=== PATIENT | female | born 1985 | race Caucasian/White ===

== ENCOUNTER 2024-12-21 20:10 | Emergency (ER) | payer OTHER, SELFPAY ==
--- NOTE | ~2024-12-21 | XR_ITS ---
XR chest 2V Ordering provider: Benny Lazcano MD History: 39 years Female with . chest pain . Comparison: None. FINDINGS: MEDIASTINUM: The cardiac silhouette is not enlarged. LUNGS: No infiltrates, effusions or pneumothorax. OTHER: No free air under the diaphragm. Degenerative changes of the spine. IMPRESSION: No acute cardiopulmonary pathology. Reviewed, dictated and finalized at location A.
[2024-12-21 20:12] VITALS: BP 141/87; PULSE 90; RESP 18; TEMP 36.7; O2SAT 100
--- NOTE | 2024-12-21 20:12 | ECG_ITS ---
Test Date: 2024-12-21 20:17:53 Measurements Intervals [place] Rate: 78 P: 87 VA: 142 QRS: 46 QRSD: 95 T: 38 QT: 350 QTc: 400 Interpretive Statements SINUS RHYTHM RSR' IN V1 OR V2, PROBABLY NORMAL VARIANT No previous ECG available for comparison Electronically Signed On 12-22-2024 15:19:17 CDT by Jah Farrar M.D.
--- OUTSIDE RECORDS SUMMARY | 2024-12-21 20:12 | XMS_ITS | Data Portability ---
Author Organization [facility], [facility] Address [address] [facility] [address] [place] [address] Assessment No assessment recorded. Plan of Treatment Reminders Order Date Submit Date Provider Last Modified By Organization Details Last Modified Time Details Appointments None recorded. Lab None recorded. Referral None recorded. Procedures None recorded. Surgeries None recorded. Imaging None recorded. Medication Orders Augmentin 875 mg-125 mg tablet 2018 019 INTERFACE [id number], [address] [place] [address], [id number], 9 10:30:16 Patient TargetsNo targets recorded. Patient Instructions Encounter Date Encounter Id Patient Instructions Last Modified By Organization Details Last Modified Time 11/08/2018 [id number] Discharge Instructions [email or web address] Not available 11/08/2018 10:30:08 Acute Sinusitis: Care Instructions [email or web address] Not available 11/08/2018 10:30:08 Reason for Referral None Reported. Problems Name Problem SNOMED Code Status Onset Date Resolution Date Notes Provider Name and Address Organization Details Recorded Time Sneezing 01275534 Active 019 MARIA FERNANDA REEVES null, [facility] 9 10:25:49 Headache 60797628 Active 019 MARIA FERNANDA REEVES null, [facility] 9 10:25:56 Bilateral earache 460045316 Active 019 MARIA FERNANDA REEVES null, [facility] 9 10:26:04 Pain in throat 404748494 Active 019 MARIA FERNANDA REEVES [facility] 9 10:26:11 Problem Notes None recorded. Medical Equipment None Reported. Allergies No known drug allergies Medications Name Sig Start Date Stop Date Status Note LastModified by Organization Details LastModified Time Augmentin 875 mg-125 mg tablet Take 1 tablet every 12 hours by oral route for 10 days. 2018 active Not Available Not Available Not Avai lable amoxicillin 875 mg tablet 11/08 completed Not Available Not Available Not Available imiquimod 5 % topical cream packet 11/08 completed Not Available Not Available Not Available neomycin-poly myxin-dexamet h 3.5 mg/mL-10,000 unit/mL-0.1% eye drops 11/08 completed Not Available Not Available Not Available Vitals Date Recorded Heart rate Respiratory rate Oxygen saturation Oxygen saturation in Arterial blood by Pulse oximetry Body temperature Body height Body weight Systolic blood pressure Diastolic blood pressure Provider Name and Address Organization Details Last Updated DateTime 9 93 /min 18 /min 97 % 97 % 98.9 [degF] 165.1 cm 53770.9 7 g 112 mm[Hg] 70 mm[Hg] MARIA FERNANDA REEVES [facility] 9 10:25:10 Social History Question Answer Notes LastModified by Organizat ion Details LastModified Time Tobacco Smoking Status Never Smoker MARIA FERNANDA REEVES [facility] 11/08/2018 10:26:15 Alcohol Use None [email or web address] Information n ot available 11/08/2018 What Was The Date Of Your Most Recent Tobacco Screening? 11/08/2018 Information n ot available 02/18/2019 Are You Passively Exposed To Smoke? No [email or web address] Information not available 11/08/2018 How Much Tobacco Do You Smoke? No Information not available 11/08/2018 How Many Years Have You Smoked Tobacco? 0 [email or web address] Information not available 11/08/2018 Sex: Unknown Functional Status None recorded. Mental Status None recorded. Family History Nothing Reported. Medical History Condition Response Discussed with patient No Past Medical H x Y Gynecological History Statement/Question Response Current Control Method None Date of LMP 10/30/2018 LMP Approximate Obstetrics History GPAL:G 0 P 0 0 0 0 Past Encounters Encounter ID Performer Location Encounter Start Date Encounter Closed Date Diagnosis/Indication Diagnosis SNOMED-CT Code Diagnosis ICD10 Code Diagnosis Note [id number] NED Ly [facility] [id number] [facility] [address] [place] [address] 11/08/2018 10:19:36 11/08/2018 10:32:51 Acute sinusitis 00269343 J01.90 Acute pharyngitis 832492 003 J02.9 Health Concerns Section Related Observation LastModified by Organization Detai ls LastModified Time None Recorded Concern Status LastModified by Organization Details LastModified Time None Recorded Advance Directives Directive None Recorded Payers Insurance Date Sequence Insurance Name Policy Number Policy Wu Covered Member ID Wu Member ID Guarantor Name 11/08/2018 1 [facility] [id number] Jimmy Joe [id number] Qutea Joe Notes Date Note Type Note Provider Name and Address Organization Details Recorded Time 11/08/2018 text/html Sinusitis UCReported bypatient.Locatio n:maxillary; frontal Quality:minimal discomfort Onset/ Duration:12 ago Timing:wax/wane; worse in the morning Severity:moderate Associated Symptoms:no difficulty breathing; no headache; no facial pain; no sinus pain;nasal discharge from both nostrils;fever/ch ills;sore throat;thick phlegm in throat;constantly clearing the throat;ear [place]ness[place] [id number] [facility] [address],[facility] [address], [place], [address], [facility], [facility] 11/08/2018 10:31:02 OBGyn Episode No OBEpisode recorded.
--- OUTSIDE RECORDS SUMMARY | 2024-12-21 20:12 | XMS_ITS | Encounter Summary ---
Author Organization [facility] Address [address] [place] [address] Care Team Providers Care Production Associate Name Role Phone Mika Dacosta MD Primary Care Provider [phone] Encounter Details Date Type Department Care Team (Late st Contact Info) Description 04/14/2005 Outpatient Historical [facility] Internal Medicine [address] [address] Mika Dacosta MD [address] [place] [address] [address] [place] [address] Social History Tobacco Use Types Packs/Day Years Used Date Smoking Tobacco: Never Assessed Comments Unknown Sex and Gender Information Value Date Recorded Sex Assigned at Not on file Legal Sex Female 2:56 AM FLATCAR WHACKER Gender Identity Not on file Sexual Orientation Not on file documented as of this encounter Plan of Treatment Upcoming Encounters Date Type Department Care Team (Late st Contact Info) Description 12/28/2024 10:20 AM CDT Office Visit [facility] Primary Care [address] [place] [address] Mika Dacosta MD [address] [place] [address] [address] [place] [address] 01/26/2025 10:50 AM CDT Office Visit [facility] WELL DRILLER Medical [place] [address] [facility] [address] [place] [address] Seema Dyson, [address] [facility] [address] [place] [address] documented as of this encounter Visit Diagnoses Not on filedocumented in this encounter Care Teams Production Associate Relationship Specialty Start Date End Date Mika Dacosta MD PCP - General 05/18/08 03/19/20 documented as of this encounter
--- OUTSIDE RECORDS SUMMARY | 2024-12-21 20:12 | XMS_ITS | Encounter Summary ---
Author Organization [facility] Address 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 headaches, have gotten worse over the last year HISTORY: headaches worse x months, legs still bother her, no inc stress, engaged PHYSICAL EXAMINATION: CONSTITUTIONAL: GENERAL APPEARANCE: Healthy appearing patient in no distress. EYES: PUPILS: Pupils equal and normally reactive to light and accommodation. FUNDUSCOPIC EXAM: Ophthalmoscopic examination shows the fundi to be normal. The optic disc are flatand of normal size. There are no hemorrhages or exudates. EARS, NOSE, MOUTH AND THROAT: EARS: Tympanic membranes shiny without retraction. Canals unremarkable. Hearing grossly normal. ORAL: Inspection of gums, lips, palate, and teeth normal. No scars, lesions, or masses. Oral mucosaunremarkable with non-inflamed posterior pharynx. NECK/THYROID: Trachea midline. No thyroid enlargement, tenderness, or mass. No supraclavicular or cervical adenopathy. RESPIRATORY: Clear to auscultation and percussion. Normal respiratory effort. CARDIOVASCULAR: CARDIAC: Regular rhythm. No murmurs, rubs, or gallops. ARTERIAL: No aortic bruits. EDEMA/VARICOSITIES OF EXTREMITIES: No edema or varicosities. GASTROINTESTINAL: ABDOMEN: Soft, non-tender, without masses. Bowel sounds active. LIVER/SPLEEN/KIDNEY: No hepatosplenomegaly, tenderness or nodularity. Kidneys not palpable. MUSCULOSKELETAL EXAM: EXTREMITIES: BILATERAL LOWER EXTREMITIES: No misalignment or tenderness. Full range of motion. Normal stability,strength and tone. 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 MIDRIN ORAL CAPSULE CONVENTIONAL 325-65-100 MG, 1 Every Six Hours, As Needed, 50 Dispensed, 3 Fills, status: NEW PRESCRIPTION, 10/02/2006. RETURN VISIT : Instructed to call if not improving. Electronically Signed by: Mika Dacosta MD on Monday, October 02, 2006 documented in this encounter Plan of Treatment Upcoming Encounters Date Type Department Care Team (Late st Contact Info) Description 12/28/2024 10:20 AM CDT Office Visit [facility] Primary Care [facility] [address] [place] [address] [address] [place] [phone] Mika Dacosta MD [address] [facility] [address] [place] [phone] 01/26/2025 10:50 AM CDT Office Visit [facility] SAMPLE COORDINATOR Medical [place] [address] [facility] [address] [place] [address] Seema Dyson DO [address] [facility] [address] [place] [address] documented as of this encounter Visit Diagnoses Not on filedocumented in this encounter Care Teams Repair Electric Motor Assembler Relationship Specialty Start Date End Date Mika Dacosta MD PCP - General 05/18/08 03/19/20 documented as of this encounter
--- OUTSIDE RECORDS SUMMARY | 2024-12-21 20:12 | XMS_ITS | Encounter Summary ---
Author Organization [facility] Address [address] [place] [address] Care Team Providers Care Financial Planner Name Role Phone Mika Dacosta MD Primary Care Provider [phone] Encounter Details Date Type Department Care Team (Late st Contact Info) Description 06/17/2004 Outpatient Historical [facility] Internal Medicine [address] [address] Mika Dacosta MD [address] [place] [address] [address] [place] [address] Social History Tobacco Use Types Packs/Day Years Used Date Smoking Tobacco: Never Assessed Comments Unknown Sex and Gender Information Value Date Recorded Sex Assigned at Not on file Legal 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 Female 2:56 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 Gender Identity Not on file Sexual Orientation Not on file documented as of this encounter Last Filed Vital Signs Vital Sign Reading Time Taken Comments Blood Pressure 120/60 06/17/2004 11:30 AM CADD INSTRUCTOR Pulse - - Temperature - - Respiratory Rate - - Oxygen Saturation - - Inhaled Oxygen Concentration - - Weight 62.1 kg (137 lb) 06/17/2004 11:30 AM CADD INSTRUCTOR Height - - Body Mass Index 22.8 08/02/2003 3:45 PM CADD INSTRUCTOR documented in this encounter Plan of Treatment Upcoming Encounters Date Type Department Care Team (Late st Contact Info) Description 12/28/2024 10:20 AM CDT Office Visit [facility] Primary Care [address] [place] [address] Mika Dacosta MD [address] [facility] [address] [place] [address] 01/26/2025 10:50 AM CDT Office Visit [facility] BPM ANALYST Medical [facility] [address] [facility] [address] [place] [address] Seema Dyson, [address] [facility] [address] [place] [address] documented as of this encounter Visit Diagnoses Not on filedocumented in this encounter Care Teams Financial Planner Relationship Specialty Start Date End Date Mika Dacosta MD PCP - General 05/18/08 03/19/20 documented as of this encounter
--- OUTSIDE RECORDS SUMMARY | 2024-12-21 20:12 | XMS_ITS | Encounter Summary ---
Author Organization [facility] Address [address] [place] [address] Care Team Providers Care Clay Molder Name Role Phone Mika Dacosta MD Primary Care Provider Encounter Details Date Type Department Care Team (Late Contact Info) Description 01/07/2007 Orders Only [facility] Internal Medicine [address] [address] Mika Dacosta MD [address] [place] [address] [address] [place] [address] Social History Tobacco Use Types Packs/Day Years Used Date Smoking Tobacco: Never Assessed Comments Unknown Sex and Gender Information Value Date Recorded Sex Assigned at Not on file Legal Sex Female 2:56 AM FIRST AID OFFICER Gender Identity Not on file Sexual Orientation Not on file documented as of this encounter Plan of Treatment Upcoming Encounters Date Type Department Care Team (Late st Contact Info) Description 12/28/2024 10:20 AM CDT Office Visit [facility] Primary Care [address] [place] [address] Mika Dacosta MD [address] [place] [address] [address] [place] [address] 01/26/2025 10:50 AM CDT Office Visit [facility] MRP CONTROLLER Medical [place] [address] [facility] [address] [place] [address] Seema Dyson, [address] [facility] [address] [place] [address] documented as of this encounter Visit Diagnoses Not on filedocumented in this encounter Care Teams Clay Molder Relationship Specialty Start Date End Date Mika Dacosta MD PCP - General 05/18/08 03/19/20 documented as of this encounter
--- OUTSIDE RECORDS SUMMARY | 2024-12-21 20:12 | XMS_ITS | Clinical Summary ---
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 Gender Identity Not on file Sexual Orientation Not on file Plan of Treatment Health Maintenance Due Date Last Done Comments Hepatitis C Virus (HCV) Screening 1984 TdaP Immunization 1984 Hepatitis B Immunization (1 of 3 - 19+ 3-dose series) 2003 Pap Smear 2005 Cervical Cancer Screening (CCS) 2014 HPV/Cotest 2014 Influenza Immunization (#1) 03/27/202404/26, 05/25/2019, 05/09/2018, Additional history exists SARS-COV-2 Immunization ( season) 2024 Discussion re Starting/Frequency of Mammograms 2024 Respiratory Syncytial Virus (RSV) Immunization (Adult) (1 - 1-dose 75+ series) 2059 Meningococcal Immunization (ACWY) Aged Out No longer eligible based on patient's age to complete this topic Pneumococcal Immunization Combined Aged Out No longer eligible based on patient's age to complete this topic Rotavirus Immunization Aged Out No lo nger eligible based on patient's age to complete this topic
--- OUTSIDE RECORDS SUMMARY | 2024-12-21 20:12 | XMS_ITS | Encounter Summary ---
Author Organization [facility] Address [address] [place] [address] Care Team Providers Care Mixed Crop And Livestock Farmer Name Role Phone Mika Dacosta MD Primary Care Provider [phone] Encounter Details Date Type Department Care Team (Late st Contact Info) Description 08/02/2003 Outpatient Historical [facility] Internal Medicine [address] [address] Mika Dacosta MD [address] [place] [address] Social History Tobacco Use Types Packs/Day Years Used Date Smoking Tobacco: Never Assessed Comments Unknown Sex and Gender Information Value Date Recorded Sex Assigned at Not on file Legal Sex Female 2:56 AM HOT TOP LINER Gender Identity Not on file Sexual Orientation Not on file documented as of this encounter Last Filed Vital Signs Vital Sign Reading Time Taken Comments Blood Pressure 120/70 08/02/2003 3:45 PM HOT TOP LINER Pulse - - Temperature - - Respiratory Rate - - Oxygen Saturation - - Inhaled Oxygen Concentration - - Weight 60.8 kg (134 lb) 08/02/2003 3:45 PM HOT TOP LINER Height 165.1 cm (5' 5) 08/02/2003 3:45 PM HOT TOP LINER Body Mass Index 22.3 08/02/2003 3:45 PM HOT TOP LINER documented in this encounter Plan of Treatment Upcoming Encounters Date Type Department Care Team (Late st Contact Info) Description 12/28/2024 10:20 AM CDT Office Visit [facility] Primary Care [place] [id number] [facility] [address] [place] [address] Mika Dacosta MD [address] [facility] [address] [place] [address] 01/26/2025 10:50 AM CDT Office Visit [facility] LOCKSTITCH TOPSTITCHER Medical [place] [address] [facility] [address] [place] [address] Seema Dyson, [address] [facility] [address] [place] [address] documented as of this encounter Visit Diagnoses Not on filedocumented in this encounter Care Teams Mixed Crop And Livestock Farmer Relationship Specialty Start Date End Date Mika Dacosta MD PCP - General 05/18/08 03/19/20 documented as of this encounter
--- OUTSIDE RECORDS SUMMARY | 2024-12-21 20:12 | XMS_ITS | Encounter Summary ---
Author Organization [facility] Address [address] [place] [address] Care Team Providers Care Subsorter Name Role Phone Mika Dacosta MD Primary Care Provider [phone] Encounter Details Date Type Department Care Team (Late st Contact Info) Description 10/02/2006 Outpatient Historical [facility] Internal Medicine [address] [address] Mika Dacosta MD [address] [place] [address] [address] [place] [address] Social History Tobacco Use Types Packs/Day Years Used Date Smoking Tobacco: Never Assessed Comments Unknown Sex and Gender Information Value Date Recorded Sex Assigned at Not on file Legal Sex Female 2:56 AM SPOOL WINDER Gender Identity Not on file Sexual Orientation Not on file documented as of this encounter Last Filed Vital Signs Vital Sign Reading Time Taken Comments Blood Pressure 120/72 10/02/2006 2:15 PM SPOOL WINDER Pulse - - Temperature - - Respiratory Rate - - Oxygen Saturation - - Inhaled Oxygen Concentration - - Weight 62.6 kg (138 lb) 10/02/2006 2:15 PM SPOOL WINDER Height - - Body Mass Index 22.96 08/02/2003 3:45 PM SPOOL WINDER documented in this encounter Plan of Treatment Upcoming Encounters Date Type Department Care Team (Late st Contact Info) Description 12/28/2024 10:20 AM CDT Office Visit [facility] Primary Care [address] [place] [address] Mika Dacosta MD [address] [facility] [address] [place] [address] 01/26/2025 10:50 AM CDT Office Visit [facility] NITRILES LAB TECHNICIAN Medical [facility] [address] [facility] [address] [place] [address] Seema Dyson, [address] [facility] [address] [place] [address] documented as of this encounter Visit Diagnoses Not on filedocumented in this encounter Care Teams Subsorter Relationship Specialty Start Date End Date Mika Dacosta MD PCP - General 05/18/08 03/19/20 documented as of this encounter
--- OUTSIDE RECORDS SUMMARY | 2024-12-21 20:12 | XMS_ITS | Encounter Summary ---
Author Organization [facility] Address [address] [place] [address] Care Team Providers Care Dry Cleaner Helper Name Role Phone Mika Dacosta MD Primary Care Provider Encounter Details Date Type Department Care Team (Late st Contact Info) Description 04/14/2005 Outpatient Historical [facility] Internal Medicine [address] [address] Mika Dacosta MD [address] [place] [address] [address] [place] [address] Social History Tobacco Use Types Packs/Day Years Used Date Smoking Tobacco: Never Assessed Comments Unknown Sex and Gender Information Value Date Recorded Sex Assigned at Not on file Legal Sex Female 2:56 AM MANAGER SWITCH Gender Identity Not on file Sexual Orientation Not on file documented as of this encounter Plan of Treatment Upcoming Encounters Date Type Department Care Team (Late st Contact Info) Description 12/28/2024 10:20 AM CDT Office Visit [facility] Primary Care [address] [place] [address] Mika Dacosta MD [address] [place] [address] [address] [place] [address] 01/26/2025 10:50 AM CDT Office Visit [facility] LOTTERIES AGENT Medical [place] [address] [facility] [address] [place] [address] Seema Dyson, [address] [facility] [address] [place] [address] documented as of this encounter Visit Diagnoses Not on filedocumented in this encounter Care Teams Dry Cleaner Helper Relationship Specialty Start Date End Date Mika Dacosta MD PCP - General 05/18/08 03/19/20 documented as of this encounter
--- OUTSIDE RECORDS SUMMARY | 2024-12-21 20:12 | XMS_ITS | Continuity of Care Document ---
Author Organization [facility] Address [address] [place] [address] Phone Care Team Providers Care Publications Designer Name Role Phone Unavailable Unavailable Unavailable Advance Directives Directive Yes / No Effective Date File Name No Information Encounters Encounter Description Practice Location Reason(s) For Visit Diagnoses Date Provider Providers Copied on Encounter [facility], [address] [facility], [place], [place], [id number], tel:[phone] [facility] OUTPATIENT No Information No Information Referring Provider: SILVIO NGUYEN, [address] [place], [address]. tel:[phone] Family History Family Member Type Diagnosis Age At Onset No Information Payers Payer name Insurance type Covered democrat ID makayla chase(s) [facility] [id number] Social History Type Description Quantity Date Captured Comments Sex Female Smoking Status No Information Chief Complaint And Reason For Visit No Information History Of Present Illness Encounter Date Complaint History Of Prese nt Illness No Information Instructions Date Instruction Additional Infor mation No Information Assessments Type Assessment Date No Information
--- OUTSIDE RECORDS SUMMARY | 2024-12-21 20:12 | XMS_ITS | Encounter Summary ---
Author Organization [facility] Address 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 ALTERNATIVE PHONE NUMBER: [phone] SECTION 1: REQUESTED ACTION malini 01/06/07 at 04:40 pm: MEDICATION REQUEST: Pt has moved. MEDICATION REQUEST: Patient requests a refill. Amitriptyline mailed to her. DOCTOR`S RESPONSE: keiry 01/06/07 at 04:49 pm MEDICATIONS: AMITRIPTYLINE HCL ORAL TABLET 25 MG, 1 Every Day At Bedtime, 90 Dispensed, 1 Fills, status: CONTINUED, 01/06/2007. FINAL ACTION: licasl 01/06/07 at 05:13 pm Left message on patient`s recorder or with a family member 01/06/2007 at 05:13 pm. SECTION 2: FINAL ACTION: gibran 01/07/07 at 09:29 am Spoke with patient 01/07/07 at 09:29 am. got new address [address] [place] [address] Dr. Chaidez [address] [place] [address] and printed scriptlh Electronically Signed by: Marisela Burkett on December documented in this encounter Plan of Treatment Upcoming Encounters Date Type Department Care Team (Late st Contact Info) Description 12/28/2024 10:20 AM CDT Office Visit [facility] Primary Care [place] [address] [place] [address] Mika Dacosta MD [address] [place] [address] [address] [place] [phone] 01/26/2025 10:50 AM CDT Office Visit [facility] WINDOW/DISTRIBUTION CLERK Medical [facility] [address] [facility] [address] [place] [address] Seema Dyson DO [address] [place] [address] documented as of this encounter Visit Diagnoses Not on filedocumented in this encounter Care Teams Insurance Representative Relationship Specialty Start Date End Date Mika Dacosta MD PCP - General 05/18/08 03/19/20 documented as of this encounter
--- OUTSIDE RECORDS SUMMARY | 2024-12-21 20:12 | XMS_ITS | Clinical Summary ---
Author Organization [facility] Address [address] [place] [address] Care Team Providers Care Olive Grader Name Role Phone Unavailable Primary Care Provider Unavailabl e Allergies No known active allergies Medications fluticasone propionate (FLONASE) 50 mcg/spray Goode, Suspension nasal inhaler Administer 2 Sprays in each nostril daily. 16 Gram 3 9 Active Active Problems Patient Care Coordination No te Formatting of this note migh t be different from the original. Prev 01/19/18 Problem Noted Date Diagnosed Date (spontaneous vaginal delivery) 03/02/2017 11/1811/18/2013 Headache(784.0) 08/02/2003 Anemia associated with other specified nutritional deficiency 08/02/2003 Resolved Problems Problem Noted Date Diagnosed Date Resolved Date Normal labor 03/02/2017 03/02/2017 EIL(pit), MTHFR, GBS-, B+, [id number] 11/18/2013 11/18/2013 3.12 10/06/2011 11/18/2012 eil-s/p cervidil, Pit/AROM 1500, B+, GBS neg 2 10/06/2011 Screening for thyroid disorder 10/02/2006 05/18/2008 Special screening for malign ant neoplasms, colon 04/29/2005 05/18/2008 Screening for lipoid disorders 04/14/2005 05/18/2008 Screening for malignant neop lasm of the rectum 04/14/2005 05/18/2008 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5ML, IM 12/25/2016,03/28/2009 (SPIKEVAX) (12 YRS UP PRIMAR Y SERIES) COVID-19 VACCINE - MRNA-1273(PF) 100 MCG/0.5 ML IM SUSP 07/15/2021 INFLUENZA VACCINE QUADRIVALE NT 6 MOS UP PF IM 05/10/2018 Influenza Seasonal Unspecifi ed Formulation IM 08/03/2016,04/26/2015,05/12/2014,2012,05/05/2012,05/01/2011 Family History Medical History Relation Name Comments High Cholesterol Father Hypertension Father Depression Mother High Cholesterol Mother Hypertension Mother Migraines Mother Heart Disease Paternal Grandfather Hypertension Paternal Grandmother High Cholesterol Sister 2 Asthma Sister 3 Healthy Son Relation Name Status Comments Father Alive Maternal Grandfather Maternal Grandmother Mother Alive Paternal Grandfather Paternal Grandmother Alive Sister 1 Alive Sister 2 Sister 3 Son Alive Social History Tobacco Use Types Packs/Day Years Used Date Smoking Tobacco: Never Smokeless Tobacco: Never Tobacco Cessation:Counseling Given: No Alcohol Use Standard Drinks/Week Comments No 0 (1 standard drink = 0.6 oz pur e alcohol) Comments No Sex and Gender Information Value Date Recorded Sex Assigned at Not on file 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 Gender Identity Not on file Sexual Orientation Not on file 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 file Not on file Not on file Not on file Not on file Not on file Not on file Last Filed Vital Signs Vital Sign Reading Time Taken Comments Blood Pressure 124/68 11/13/2023 1:51 PM CDT Pulse 95 12/15/2018 1:19 PM CDT Temperature 36.4 C (97.6 F) 12/15/2018 1:19 PM CDT Respiratory Rate 17 03/06/2017 11:40 AM CDT Oxygen Saturation 99% 12/15/2018 1:19 PM CDT Inhaled Oxygen Concentration - - Weight 72.1 kg (159 lb) 11/13/2023 1:51 PM CDT Height 165.1 cm (5' 5) 04/25/2020 12:03 PM CDT Body Mass Index 26.46 04/25/2020 12:03 PM CDT Plan of Treatment Upcoming Encounters Date Type Department Care Team (Late st Contact Info) Description 12/28/2024 10:20 AM CDT Office Visit [facility] Primary Care [place] [address] [place] [phone] Mika Dacosta MD [address] [place] [address] [address] [place] [address] 01/26/2025 10:50 AM CDT Office Visit [facility] FREELANCE MAKEUP ARTIST Medical [place] [address] [facility] [address] [place] [address] Seema Dyson, [address] [facility] [place] [address] Health Maintenance Due Date Last Done Comments HEPATITIS B VACCINES (1 of 3 - 19+ 3-dose series) 2003 INFLUENZA VACCINE (#1) 2024 8, 08/03/2016, 04/26/2015, Additional history exists COVID-19 Vaccine ( season) 2024 07/15/2021 BREAST CANCER SCREENING 2024 PAP SMEAR 11/12/2026 11/13/2023, 04/25/2020 DTAP/TDAP/TD VACCINES (3 - Td or Tdap) 12/25/2026 12/25/2016, 03/28/2009 CERVICAL CANCER SCREENING 11/12/2028 HPV/Cotest (21-29) 11/12/2028 11/13/2023, 04/25/2020 HPV/Cotest (30-65) 11/12/2028 11/13/2023, 04/25/2020 HPV VACCINES Aged Out No longer eligi ble based on patient's age to complete this topic Procedures Procedure Name Priority Date/Time Associated Diagnosis Comments CERV/VAG CYTO SCREEN PAP RLFX HPV Routine 11/13/2023 2:51 PM CDT Screening for cervical cancer from Last 3 Months or Most Recently Relevant to Health Maintenance Results * CERV/VAG CYTO SCREEN PAP RLFX HPV (11/13/2023 2:51 PM CDT) CLINICAL INFORMATION Kirby Salvador Comment:None given LAST MENSTRUAL PERIOD Kirby Salvador Comment:NONE GIVEN PREV PAP: Kirby Salvador Comment:NONE GIVEN PREV BX: Kirby Salvador Comment:NONE GIVEN SOURCE Kirby Salvador Comment:Endocervix ADEQUACY: Kirby Salvador Comment: Satisfactory for evaluation. Endocervical/transformation zone component present. Age and/or menstrual status not provided PAP INTERP Kirby Salvador Comment: Cytology Results: Negative for intraepithelial lesion or malignancy. COMMENT (PAP TEST) Q uest Deena Salvador Comment: This Pap test has been evaluated with computer assisted technology. HEATER TENDER: Landon Salvador Comment: ANNABEL[place], CT(ASCP) CT screening location: [place] [address] [address] [place] [address] Deena Salvador Comment: EXPLANATORY NOTE: The Pap is a screening test for cervical cancer. It is not a diagnostic test and is subject to false negative and false positive results. It is most reliable when a satisfactory sample, regularly obtained, is submitted with relevant clinical findings and history, and when the Pap result is evaluated along with historic and current clinical information. Test Performed at: [place] [address] [address] [place] [address] Bubba Curran Genital SWAB OF ENDOCERVIX / Unknown 11/13/2023 2:51 PM CDT 11/13/2023 9:57 PM CDT Seema Dyson DO PATHOLOGY/CYTOLOGY ORDERABLES Final Result [facility] [phone] [facility] [address] [place] [address] from Last 3 Months or Most Recently Relevant to Health Maintenance Insurance [place] [phone] Advance Directives For more information, please contact: [phone] * Full Code (Latest Code Status on File) Date Activated Date Inactivated Comments 03/03/2017 1:35 AM 03/04/2017 1:33 PM * Full Code Date Activated Date Inactivated Comments 03/02/2017 7:52 AM 03/03/2017 1:35 AM * Full Code Date Activated Date Inactivated Comments 11/19/2013 12:46 AM 11/20/2013 1:33 PM * Full Code Date Activated Date Inactivated Comments 11/18/2013 1:40 PM 11/19/2013 12:46 AM * Full Code Date Activated Date Inactivated Comments 10/07/2011 12:49 AM 10/08/2011 4:55 PM
[2024-12-21 20:28] LABS: Basophils Absolute Auto 0.1 K/mm3 (0.0-0.1); Basophils Percent Auto 0.7 % (0.2-1.2); Eosinophils Absolute Auto 0.1 K/mm3 (0-0.3); Eosinophils Percent Auto 1.2 % (0-4.4); Hemoglobin 13.2 g/dL (12.0-15.0); Immature Granulocyte Absolute 0.12 K/mm3 (0.00-0.031); Immature Granulocyte Percent A 1.2 % (0-0.5); Lymphocytes Absolute Auto 2.54 K/mm3 (0.9-3.2); Lymphocytes Percent Auto 25.5 % (18.3-44.2); Mean Corpuscular Hemoglobin 30.8 pg (26-34); Mean Corpuscular Volume 93.2 fl (80-100); Mean Platelet Volume 9.4 fl (7.4-10.4); Monocytes Absolute Auto 0.5 K/mm3 (0.1-0.6); Monocytes Percent Auto 5.3 % (2.6-8.5); Neutrophils Absolute Auto 6.6 K/mm3 (1.3-6.7); Neutrophils Percent Auto 66.1 % (45.5-73.1); Platelet Count Result 265 k/mm3 (150-375); Red Blood Count 4.29 M/mm3 (4.2-5.4); Red Cell Distribution Width 12.9 % (11.5-14.5)
[2024-12-21 20:39] LABS: Alanine Aminotransferase 16 U/L (6-35); Albumin Level 4.6 g/dL (3.5-5.1); Alkaline Phosphatase 48 U/L (38-126); Anion Gap 7 mmol/L (4-12); Aspartate Amino Transferase 27 U/L (14-36); Bilirubin,Total 0.4 mg/dL (0.2-1.3); Blood Urea Nitrogen 17 mg/dL (7-17); Carbon Dioxide 28 mmol/L (22-30); Chloride 103 mmol/L (98-107); Estimated CRCL calculation 81 ml/min; Estimated Glomerular Filt Rate > 60; Glucose 108 mg/dL (65-110); Lipase 168 U/L (23-300); Potassium 3.8 mmol/L (3.4-5.0); Sodium 138 mmol/L (137-145)
--- NOTE | 2024-12-21 20:41 | PC.NURSE ---
Patient reports that she feels reassured since her EKG was not alarming to the MD-has appointment with her PMD in 2 days that she will go to so is leaving now
[2024-12-21 20:45] LABS: INR 1.2; Prothrombin Time 15.1 Seconds (11.1-14.7)
[2024-12-21 20:46] LABS: Partial Thromboplastin Time 31.4 Seconds (22.3-36.8)
[2024-12-21 20:51] LABS: Troponin I 0.018 ng/mL (0.000-0.034)
--- OUTSIDE RECORDS SUMMARY | 2024-12-21 21:17 | XMS_ITS | Clinical Summary ---
Author Organization [facility] Address [address] [place] [address] Care Team Providers Care Garde Manger Name Role Phone Unavailable Primary Care Provider Unavailabl e Social History Tobacco Use Types Packs/Day Years Used Date Smoking Tobacco: Never Assessed Comments Unknown Sex and Gender Information Value Date Recorded Sex Assigned at Not on file Legal Sex Female 10:58 AM MAT ROLLER Gender Identity Not on file Sexual Orientation [...]
--- OUTSIDE RECORDS SUMMARY | 2024-12-21 21:17 | XMS_ITS | Clinical Summary ---
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 [facility] [address] [facility] [place] [address] Health Maintenance Due Date Last [...] has been evaluated with computer assisted technology. WINCHMAN/CRANE OPERATOR: Landon Salvador Comment: ANNABELLE, CT(ASCP) CT screening location: [place] [address] [address] [place] [address] Deena Salvador Comment: [...] and current clinical information. Test Performed at: [facility] [place] [address] [address] [place] [address] Bubba Curran Genital SWAB OF ENDOCERVIX / Unknown 11/13/2023 2:51 PM CDT 11/13/2023 9:57 PM CDT Seema Dyson DO PATHOLOGY/CYTOLOGY ORDERABLES Final Result [facility] [phone] [facility] [address] [place] [address] from Last 3 Months or Most Recently Relevant to Health Maintenance Insurance [employer] [phone] Advance Directives For more information, please contact: [phone] * Full Code (Latest Code Status on [...]
--- OUTSIDE RECORDS SUMMARY | 2024-12-21 21:17 | XMS_ITS | Encounter Summary ---
Author Organization [facility] Address [address] [place] [address] Care Team Providers Care Research Dietitian Name Role Phone Mika Dacosta MD Primary Care Provider [phone] Encounter Details Date Type Department Care Team (Late st Contact Info) Description 08/02/2003 Outpatient Historical [facility] Internal Medicine [address] [address] Mika Dacosta MD [address] [place] [address] Social History Tobacco Use Types Packs/Day Years Used Date Smoking Tobacco: Never Assessed Comments Unknown Sex and Gender Information Value Date Recorded Sex Assigned at Not on file Legal 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 Female 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 Gender Identity Not on file Sexual Orientation Not on file documented as of this encounter Last Filed Vital Signs Vital Sign Reading Time Taken Comments Blood Pressure 120/70 08/02/2003 3:45 PM KINESIOTHERAPIST Pulse - - Temperature - - Respiratory Rate - - Oxygen Saturation - - Inhaled Oxygen Concentration - - Weight 60.8 kg (134 lb) 08/02/2003 3:45 PM KINESIOTHERAPIST Height 165.1 cm (5' 5) 08/02/2003 3:45 PM KINESIOTHERAPIST Body Mass Index 22.3 08/02/2003 3:45 PM KINESIOTHERAPIST documented in this encounter Plan of Treatment Upcoming Encounters Date Type Department Care Team (Late st Contact Info) Description 12/28/2024 10:20 AM CDT Office Visit [facility] Primary Care [place] [id number] [facility] [address] [place] [address] Mika Dacosta MD [address] [facility] [address] [place] [address] 01/26/2025 10:50 AM CDT Office Visit [facility] WALLPAPER EMBOSSER HELPER Medical [place] [address] [facility] [address] [place] [address] Seema Dyson, [address] [facility] [address] [place] [address] documented as of this encounter Visit Diagnoses Not on filedocumented in this encounter Care Teams Research Dietitian Relationship Specialty Start Date End Date Mika Dacosta MD PCP - General 05/18/08 03/19/20 documented as of this encounter
--- OUTSIDE RECORDS SUMMARY | 2024-12-21 21:17 | XMS_ITS | Encounter Summary ---
Author Organization [facility] Address 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 Gender Identity Not on file Sexual Orientation [...] lab, discused LAB ORDERS: FASTING Order number: [id number] Test Ordered: CBC (INCLUDES DIFF/PLT) 6399 Order number: [id number] Test Ordered: COMPREHENSIVE METABOLIC PANEL W/ GLOMERULAR FILTRATION RATE, ESTIMATED (EGFR) 34512 Order number: [id number] Test Ordered: LIPID PANEL 7600 Order number: [id number] Test Ordered: TSH 899 Order number: [id number] Test Ordered: FERRITIN 457 Order number: [id number] Test Ordered: VITAMIN B12 927 356.0-HEREDITARY AND [...] Description 12/28/2024 10:20 AM CDT Office Visit [facility] Primary Care [facility] [address] [place] [address] [address] [place] [phone] Mika Dacosta MD [address] [facility] [address] [place] [phone] 01/26/2025 10:50 AM CDT Office Visit [facility] TIRE REBUILDER Medical [place] [address] [facility] [address] [place] [address] Seema Dyson DO [address] [facility] [address] [place] [address] documented as of this encounter Visit Diagnoses Not on filedocumented in this encounter Care Teams Telegraphic Typewriter Operator Chief Relationship Specialty Start Date End Date Mika Dacosta MD PCP - General 05/18/08 03/19/20 documented as of this encounter
--- OUTSIDE RECORDS SUMMARY | 2024-12-21 21:17 | XMS_ITS | Encounter Summary ---
Author Organization [facility] Address [address] [place] [address] Care Team Providers Care Field Operations Supervisor Name Role Phone Mika Dacosta MD Primary Care Provider [phone] Encounter Details Date Type Department Care Team (Late st Contact Info) Description 10/02/2006 Outpatient Historical [facility] Internal Medicine [address] [address] Mika Dacosta MD [address] [place] [address] [address] [place] [address] Social History Tobacco Use Types Packs/Day Years Used Date Smoking Tobacco: Never Assessed Comments Unknown Sex and Gender Information Value Date Recorded Sex Assigned at Not on file Legal 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 Gender Identity Not on file Sexual Orientation Not on file documented as of this encounter Last Filed Vital Signs Vital Sign Reading Time Taken Comments Blood Pressure 120/72 10/02/2006 2:15 PM KEYBOARD TEACHER Pulse - - Temperature - - Respiratory Rate - - Oxygen Saturation - - Inhaled Oxygen Concentration - - Weight 62.6 kg (138 lb) 10/02/2006 2:15 PM KEYBOARD TEACHER Height - - Body Mass Index 22.96 08/02/2003 3:45 PM KEYBOARD TEACHER documented in this encounter Plan of Treatment Upcoming Encounters Date Type Department Care Team (Late st Contact Info) Description 12/28/2024 10:20 AM CDT Office Visit [facility] Primary Care [address] [place] [address] Mika Dacosta MD [address] [facility] [address] [place] [address] 01/26/2025 10:50 AM CDT Office Visit [facility] DRUM HANDLER Medical [facility] [address] [facility] [address] [place] [address] Seema Dyson, [address] [facility] [address] [place] [address] documented as of this encounter Visit Diagnoses Not on filedocumented in this encounter Care Teams Field Operations Supervisor Relationship Specialty Start Date End Date Mika Dacosta MD PCP - General 05/18/08 03/19/20 documented as of this encounter
--- OUTSIDE RECORDS SUMMARY | 2024-12-21 21:17 | XMS_ITS | Encounter Summary ---
Author Organization [facility] Address [address] [place] [address] Care Team Providers Care Inspector Precision Assembly Name Role Phone Mika Dacosta MD Primary Care Provider [phone] Encounter Details Date Type Department Care Team (Late st Contact Info) Description 06/17/2004 Outpatient Historical [facility] Internal Medicine [address] [address] Mika Dacosta MD [address] [place] [address] [address] [place] [address] Social History Tobacco Use Types Packs/Day Years Used Date Smoking Tobacco: Never Assessed Comments Unknown Sex and Gender Information Value Date Recorded Sex Assigned at Not on file Legal Sex Female 2:56 AM RESOURCE CENTER TEACHER Gender Identity Not on file Sexual Orientation Not on file documented as of this encounter Last Filed Vital Signs Vital Sign Reading Time Taken Comments Blood Pressure 120/60 06/17/2004 11:30 AM RESOURCE CENTER TEACHER Pulse - - Temperature - - Respiratory Rate - - Oxygen Saturation - - Inhaled Oxygen Concentration - - Weight 62.1 kg (137 lb) 06/17/2004 11:30 AM RESOURCE CENTER TEACHER Height - - Body Mass Index 22.8 08/02/2003 3:45 PM RESOURCE CENTER TEACHER documented in this encounter Plan of Treatment Upcoming Encounters Date Type Department Care Team (Late st Contact Info) Description 12/28/2024 10:20 AM CDT Office Visit [facility] Primary Care [address] [place] [address] Mika Dacosta MD [address] [facility] [address] [place] [address] 01/26/2025 10:50 AM CDT Office Visit [facility] COMPUTER EQUIPMENT INSTALLER Medical [facility] [address] [facility] [address] [place] [address] Seema Dyson, [address] [facility] [address] [place] [address] documented as of this encounter Visit Diagnoses Not on filedocumented in this encounter Care Teams Inspector Precision Assembly Relationship Specialty Start Date End Date Mika Dacosta MD PCP - General 05/18/08 03/19/20 documented as of this encounter
--- OUTSIDE RECORDS SUMMARY | 2024-12-21 21:17 | XMS_ITS | Encounter Summary ---
Author Organization [facility] Address 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 [address] [place] [address] Seema Dyson, [address] [facility] [address] [place] [address] documented as of this encounter Visit Diagnoses Not on filedocumented in this encounter Care Teams Carton Filler Relationship Specialty Start Date End Date Mika Dacosta MD PCP - General 05/18/08 03/19/20 documented as of this encounter
--- OUTSIDE RECORDS SUMMARY | 2024-12-21 21:17 | XMS_ITS | Encounter Summary ---
Author Organization [facility] Address [address] [place] [address] Care Team Providers Care Wire Stripper Name Role Phone Mika Dacosta MD Primary Care Provider Encounter Details Date Type Department Care Team (Late Contact Info) Description 01/07/2007 Orders Only [facility] Internal Medicine [address] [address] Mika Dacosta MD [address] [place] [address] [address] [place] [address] Social History Tobacco Use Types Packs/Day Years Used Date Smoking Tobacco: Never Assessed Comments Unknown Sex and Gender Information Value Date Recorded Sex Assigned at Not on file Legal Sex Female 2:56 AM SAUSAGE GRINDER Gender Identity Not on file Sexual Orientation Not on file documented as of this encounter Plan of Treatment Upcoming Encounters Date Type Department Care Team (Late st Contact Info) Description 12/28/2024 10:20 AM CDT Office Visit [facility] Primary Care [address] [place] [address] Mika Dacosta MD [address] [place] [address] [address] [place] [address] 01/26/2025 10:50 AM CDT Office Visit [facility] ROBOTICS SYSTEMS ENGINEER Medical [place] [address] [facility] [address] [place] [address] Seema Dyson, [address] [facility] [address] [place] [address] documented as of this encounter Visit Diagnoses Not on filedocumented in this encounter Care Teams Wire Stripper Relationship Specialty Start Date End Date Mika Dacosta MD PCP - General 05/18/08 03/19/20 documented as of this encounter
--- OUTSIDE RECORDS SUMMARY | 2024-12-21 21:17 | XMS_ITS | Encounter Summary ---
Author Organization [facility] Address 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 ALTERNATIVE PHONE NUMBER: [phone] SECTION 1: REQUESTED ACTION malini 01/06/07 at [...] 01/07/07 at 09:29 am. got new address [address] [place] [address] Dr. Chaidez [address] [place] [address] and printed scriptlh Electronically Signed by: Marisela Burkett on December documented in this encounter Plan of Treatment Upcoming Encounters Date Type Department Care Team (Late st Contact Info) Description 12/28/2024 10:20 AM CDT Office Visit [facility] Primary Care [place] [place] [address] Mika Dacosta MD [address] [place] [address] [address] [place] [id number] 01/26/2025 10:50 AM CDT Office Visit [facility] WAFER SUBSTRATE TESTER Medical [facility] [address] [facility] [address] [place] [address] Seema Dyson DO [address] [place] [address] documented as of this encounter Visit Diagnoses Not on filedocumented in this encounter Care Teams Pack Worker Relationship Specialty Start Date End Date Mika Dacosta MD PCP - General 05/18/08 03/19/20 documented as of this encounter
--- OUTSIDE RECORDS SUMMARY | 2024-12-21 21:17 | XMS_ITS | Encounter Summary ---
Author Organization [facility] Address 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 Gender Identity Not on file Sexual Orientation Not on file documented as of this encounter Plan of Treatment Upcoming Encounters Date Type Department Care Team (Late st Contact Info) Description 12/28/2024 10:20 AM CDT Office Visit [facility] Primary Care [address] [place] [address] Mika Dacosta MD [address] [place] [address] [address] [place] [address] 01/26/2025 10:50 AM CDT Office Visit [facility] OCCUPATIONAL THERAPIST ASSISTANTS Medical [place] [address] [facility] [address] [place] [address] Seema Dyson, [address] [facility] [address] [place] [address] documented as of this encounter Visit Diagnoses Not on filedocumented in this encounter Care Teams Aircraft Machinist Relationship Specialty Start Date End Date Mika Dacosta MD PCP - General 05/18/08 03/19/20 documented as of this encounter
--- OUTSIDE RECORDS SUMMARY | 2024-12-21 21:17 | XMS_ITS | Continuity of Care Document ---
Author Organization [facility] Address [address] [place] [address] Phone Care Team Providers Care Manager Fire Name Role Phone Unavailable Unavailable Unavailable Advance Directives Directive Yes / No Effective Date File Name No Information Encounters Encounter Description Practice Location Reason(s) For Visit Diagnoses Date Provider Providers Copied on Encounter [facility], [address] [facility], [place], [place], [id number], tel:[phone] [facility] OUTPATIENT No Information No Information Referring Provider: SILVIO NGUYEN, [address] [place], [address]. tel:[phone] Family History Family Member Type Diagnosis Age At Onset No Information Payers Payer name Insurance type Covered constitution party ID makayla chase(s) [facility] [id number] Social History Type Description Quantity Date Captured Comments Sex Female Smoking Status No Information Chief Complaint And Reason For Visit No Information History Of Present Illness Encounter Date Complaint History Of Prese nt Illness No Information Instructions Date Instruction Additional Infor mation No Information Assessments Type Assessment Date No Information
== END 2024-12-21 21:37 | disposition left against medical advice (07) ==
PROVIDERS: Emergency Provider Student in an Organized Health Care Education/Training Program; PCP Internal Medicine
DX: R07.89 Other chest pain (principal)
CPT/HCPCS: 36415; 71046; 80053; 83690; 84484; 85025; 85610; 85730; 93005; 99199